=== PATIENT | male | born 1950 | race Caucasian/White ===

== ENCOUNTER → 2017-01-30 | Outpatient (CLI) | payer MEDICARE, BC | END | disposition home or self-care (01) | LOC: LABWHC1 15:06 | PROVIDERS: ATTEND Family Medicine | DX: Z12.11 Encounter for screening for malignant neoplasm of colon (principal) | CPT/HCPCS: 36415; 82272 ==

== ENCOUNTER → 2017-02-13 | Outpatient (CLI) | payer MEDICARE, BC ==
[2017-02-13 11:58] LABS: CH 30.5; CHCM 33.1; HCT 46.2 % (39.0-53.0); HDW 2.17; HGB 15.7 gm/dL (13.0-17.5); MCH 31.5 pg (25.0-35.0); MCV 92.7 fL (80.0-100.0); Mean Platelet Volume 7.4; RBC 4.98 m/uL (4.30-5.90); RDW 13.2 % (11.5-15.5); WBC 6.1 k/uL (3.8-10.6)
[2017-02-13 12:16] LABS: Anion Gap 8 mmol/L; Blood Urea Nitrogen 17 mg/dL (9-20); Carbon Dioxide 27 mmol/L (22-30); Chloride 105 mmol/L (98-107); Non-African American GFR(MDRD) >60 (>60 ml/min/1.73 sqM); Potassium 4.4 mmol/L (3.5-5.1); Sodium 140 mmol/L (137-145)
== END | disposition home or self-care (01) ==
LOC: LABWHC1 11:10
PROVIDERS: ATTEND Internal Medicine Cardiovascular Disease
DX: I48.2 Chronic atrial fibrillation (principal)
CPT/HCPCS: 36415; 80051; 80162; 82565; 84443; 84520; 85027

== ENCOUNTER 2017-02-21 07:43 | Day surgery (SDC) | payer MEDICARE, BC ==
[2017-02-20 13:30] VITALS: BMI 25.5
[~2017-02-21 07:43] MED LIST: LACTATED RINGERS 1,000 ML IV SCH; LIDOCAINE 1% 20 ML VIAL (10MG/ML) FOR IV START INTRADERMA PRN
[2017-02-21 08:44] VITALS: RESP 16; TEMP 97.1
[2017-02-21] MEDS ORDERED: LIDOCAINE 1% 20 ML VIAL (10MG/ML) FOR IV START INTRADERMA ONE (08:52)
--- NOTE | 2017-02-21 08:57 | P.GSHP ---
History of Present Illness H&P Date: 02/21/17 Chief Complaint: Screening colonoscopy This is a 66-year-old male referred from Dr. Rizo. Patient is today for screening colonoscopy. He denies any significant GI bleeds. - Constitutional Constitutional: Reports as per HPI Past Medical History Past Medical History: Atrial Fibrillation, CVA/TIA, Prostate Disorder Additional Past Medical History / Comment(s): FREQUENT DIARRHEA, MOM STATES HAS HAD TIA'S, History of Any Multi-Drug Resistant Organisms: None Reported Past Surgical History: Cholecystectomy Additional Past Surgical History / Comment(s): PILINOIDAL CYST REMOVED X4 Past Anesthesia/Blood Transfusion Reactions: No Reported Reaction Additional Psychological History / Comment(s): DEVELOPMENTALLY DELAYED Smoking Status: Never smoker Past Alcohol Use History: Occasional Past Drug Use History: None Reported - Past Family History Father Family Medical History: Cancer Medications and Allergies Home Medications Medication Instructions Recorded Confirmed Type Ascorbic Acid [Vitamin C] 500 mg PO DAILY 02/20/17 02/21/17 History Cyanocobalamin (Vitamin B-12) 1,000 mcg PO DAILY 02/20/17 02/21/17 History [Vitamin B-12] Dabigatran [Pradaxa] 150 mg PO BID 02/20/17 02/20/17 History Digoxin [Digitek] 250 mcg PO DAILY 02/20/17 02/21/17 History Ferrous Sulfate [Feosol] 325 mg PO DAILY 02/20/17 02/21/17 History Tamsulosin [Flomax] 0.4 mg PO DAILY 02/20/17 02/21/17 History Vit C/E/Zn/Coppr/Lutein/Zeaxan 1 tab PO DAILY 02/20/17 02/21/17 History [Preservision Areds 2 Softgel] Allergies Allergy/AdvReac Type Severity Reaction Status Date / Time No Known Allergies Allergy Verified 02/20/17 13:19 Surgical - Exam Vital Signs Temp Pulse Resp BP Pulse Ox 97.1 F L 82 16 90/63 98 02/21/17 08:43 02/21/17 08:43 02/21/17 08:43 02/21/17 08:43 02/21/17 08:43 - General well developed, no distress - Eyes PERRL - ENT normal pinna, normal nares - Neck no masses - Respiratory normal expansion - Cardiovascular Rhythm: regular - Abdomen Abdomen: soft, non tender Assessment and Plan Plan: We'll perform screening colonoscopy.
[2017-02-21] MEDS ORDERED: PROPOFOL 10 MG/ML 20 ML VIAL IV ONE (09:00)
--- NOTE | 2017-02-21 09:25 | P.OP ---
Date of Procedure: 02/21/17 Preoperative Diagnosis: Screening colonoscopy Postoperative Diagnosis: Severe diverticulosis of sigmoid and left colon Procedure(s) Performed: Colonoscopy Anesthesia: MAC Surgeon: Shahid Mac Pathology: none sent Condition: stable Disposition: PACU Description of Procedure: The patient's placed on the endoscopy table in the lateral position. He received IV sedation. Digital rectal exam was performed which revealed minimal internal and external hemorrhoids. The prostate was symmetrical without nodules. The flexible colonoscope was then placed patient anus and passed throughout the entire colon. The colon was very tortuous. Scope was then placed in the cecum. The ileocecal valve his vision is. The cecum, ascending and transverse colon appeared normal. In the descending colon and sigmoid colon there is extensive diverticular changes. The diverticular changes were quite extensive several of the diverticula had very large lumens. The scope was then brought back the rectum and this appeared normal. Scope was withdrawn for patient.
[2017-02-21 10:26] VITALS: BP 101/71; PULSE 78
== END 2017-02-21 10:37 | disposition home or self-care (01) ==
LOC: ORWHC2ENDO 07:43
PROVIDERS: ATTEND Surgery
DX: Z12.11 Encounter for screening for malignant neoplasm of colon (principal); K57.30 Diverticulosis of large intestine without perforation or abscess without bleeding; K64.8 Other hemorrhoids; K64.4 Residual hemorrhoidal skin tags; N40.0 Benign prostatic hyperplasia without lower urinary tract symptoms; I48.91 Unspecified atrial fibrillation; R62.50 Unspecified lack of expected normal physiological development in childhood; Z86.73 Personal history of transient ischemic attack (TIA), and cerebral infarction without residual deficits; I49.9 Cardiac arrhythmia, unspecified; Z79.899 Other long term (current) drug therapy
CPT/HCPCS: J2704; G0121

== ENCOUNTER → 2019-09-16 | Outpatient (CLI) | payer MEDICARE, BC ==
[2019-09-16 13:15] LABS: Basophils % (A) 1 %; Eosinophils # (A) 0.1 k/uL (0-0.7); Eosinophils % (A) 1 %; HCT 44.1 % (39.0-53.0); HGB 14.4 gm/dL (13.0-17.5); Lymphocytes # (A) 0.9 k/uL (1.0-4.8); Lymphocytes % (A) 14 %; MCH 31.5 pg (25.0-35.0); MCHC 32.7 g/dL (31.0-37.0); MCV 96.3 fL (80.0-100.0); Mean Platelet Volume 6.7; Monocytes # (A) 0.5 k/uL (0-1.0); Monocytes % (A) 8 %; Neutrophils # (A) 4.7 k/uL (1.3-7.7); Neutrophils % (A) 75 %; Platelet Count 208 k/uL (150-450); RBC 4.58 m/uL (4.30-5.90); RDW 13.9 % (11.5-15.5); WBC 6.3 k/uL (3.8-10.6)
[2019-09-16 19:44] LABS: Digoxin 1.6 ng/mL (0.8-2.0)
[2019-09-16 20:52] LABS: African American GFR (CKD) 104.2 (60.0-200.0); Albumin 3.8 g/dL (3.80-4.90); Albumin/Globulin Ratio 1.9 (1.60-3.17); Anion Gap 10.1 mmol/L (4.00-12.00); Calcium 8.6 mg/dL (8.7-10.3); Carbon Dioxide 25.9 mmol/L (21.6-31.8); Non-African American GFR(CKD) 89.9 (60.0-200.0); Potassium 4.8 mmol/L (3.5-5.5); Total Bilirubin 0.7 mg/dL (0.3-1.2); Total Protein 5.8 g/dL (6.2-8.2)
== END | disposition home or self-care (01) ==
LOC: LABWHC1 12:44
PROVIDERS: ATTEND Family Medicine
DX: D64.9 Anemia, unspecified (principal); I48.91 Unspecified atrial fibrillation; R79.89 Other specified abnormal findings of blood chemistry
CPT/HCPCS: 36415; 80053; 80162; 85025